=== PATIENT | female | born 1960 | race Caucasian/White ===

== ENCOUNTER 2018-03-02 07:29 | Day surgery (SDC) | payer BC ==
[~2018-03-02 07:29] MED LIST: ACETAMINOPHEN 1,000 MG/100 ML BTL IV ONE
[2018-03-02] MEDS ORDERED: FENTANYL PF 100MCG/2ML VIAL IV ONE (07:30)
[2018-03-02] MEDS ORDERED: LIDOCAINE 2% MDV (20MG/ML) 20ML VIAL IV ONE (07:30)
[2018-03-02] MEDS ORDERED: ONDANSETRON HCL IV 4 MG/2 ML VIAL IVP ONE (07:30)
[2018-03-02] MEDS ORDERED: PROPOFOL 10 MG/ML VIAL IV ONE (07:30)
[2018-03-02] MEDS ORDERED: ACETAMINOPHEN W/ CODEINE 300MG/30MG TABLET PO ONE (07:30)
[2018-03-02] MEDS ORDERED: KETOROLAC 30 MG/ML VIAL IVP ONE (07:30)
[2018-03-02] MEDS ORDERED: MIDAZOLAM HCL 2MG/2ML VIAL IV ONE (07:30)
[2018-03-02] MEDS ORDERED: SEVOFLURANE 250 ML INH ONE (07:30)
--- NOTE | 2018-03-05 13:10 | Operative Note ---
DATE OF SURGERY: 03/02/2018 Surgeon: Terrence Drake DO PREOPERATIVE DIAGNOSIS: Trigger finger of the right middle finger. POSTOPERATIVE DIAGNOSIS: Trigger finger of the right middle finger. OPERATION: Tenotomy A1 carlos right middle finger using 3.5 loop magnification. DESCRIPTION OF PROCEDURE: This 58-year-old female was taken to the operating room, placed in the supine position on the operating room table. General anesthesia was induced. The right upper extremity was elevated, prepped with Hibiclens, and draped in the usual sterile fashion. The right upper extremity was exsanguinated and the tourniquet inflated to 250 mmHg. An incision was made in the [place] overlying the head of the 3rd metacarpal longitudinally. Dissection was carried down through the skin and subcutaneous tissue. The proximal edge of the A1 carlos easily identified and then with the A1 carlos under direct vision, the carlos was tenotomized from its proximal to its distal margin under direct vision. There was some fraying of the sublimis tendon but it was not further disturbed. With the carlos completely decompressed, the finger was taken through range of motion and no impingement was identified. The wound was irrigated and hemostasis obtained with the electrocautery. The wound closed with interrupted 6-0 nylon suture. Sterile dressings applied and the patient taken to the recovery room in satisfactory condition. GROSS PATHOLOGY: There was fraying of the sublimis tendon of the right middle finger as described above. CC: ELENA Warren
== END 2018-03-02 10:15 | disposition home or self-care (01) ==
LOC: SUR 07:29
PROVIDERS: ATTEND Orthopaedic Surgery
DX: M65.331 Trigger finger, right middle finger (principal)
CPT/HCPCS: 26055; 01810; J1885; J2405; J3010